=== PATIENT | female | born 1965 | race Caucasian/White ===

== ENCOUNTER 2024-10-14 14:10 | Emergency (ER) | payer MEDICAID ==
[~2024-10-14] VITALS: Ht 162.6 cm; Wt 54.6 kg
[2024-10-14 15:05] VITALS: TEMP 98
[2024-10-14 15:16] LABS: Hematocrit 40.2 % (36.0-46.0); Hemoglobin 13.8 g/dL (12.2-16.2); Mean Corpuscular Hemoglobin 30.7 pg (28.0-32.0); Mean Corpuscular Hgb Conc. 34.4 g/dL (32.0-36.0); Mean Corpuscular Volume 89.1 fL (80.0-100.0); Platelet Count (auto) 356 10^3/uL (140-450); Red Blood Cells 4.51 10^6/uL (4.0-5.20); Red Cell Distribution Width 13.1 % (11.8-14.3); White Blood Cell 14.8 10^3/uL (4.4-10.8)
[2024-10-14 15:21] LABS: Basophils % (manual) 0 (0.0-2.0); Blast Cells 0; Metamyelocytes % 0; Myelocytes % 0; Promyelocytes % 0; Reactive Lymphocytes 0
[2024-10-14 15:31] LABS: Alanine Aminotransferase 17 U/L (7-40); Alkaline Phosphatase 86 U/L (46-116); Anion Gap 13 (5-15); Aspartate Aminotransferase 24 U/L (13-40); BUN/Creatinine Ratio 12.5 (10.0-20.0); Blood Urea Nitrogen 13 mg/dL (9-23); Carbon Dioxide 24 mmol/L (20-31); Total Protein 7.5 g/dL (5.7-8.2)
[2024-10-14 15:32] LABS: Bilirubin, Total 0.3 mg/dL (0.2-1.0)
[2024-10-14 15:34] LABS: Band Neutrophils % (manual) 1; Eosinophils % (manual) 2 (0-7); Lymphocytes % (manual) 6 (10.0-50.0); Monocytes % (manual) 8 (0-12); Platelet Estimate Adequate
[2024-10-14 15:35] LABS: Salicylate < 3.0 mg/dL (-30)
[2024-10-14 15:36] LABS: Blood Alcohol < 3.0 mg/dL (<10); Chloride 97 mmol/L (98-107); Glucose 157 mg/dL (74-106); Potassium 2.8 mmol/L (3.5-5.1); Sodium 134 mmol/L (136-145)
--- NOTE | 2024-10-14 15:44 | ED.PDOC ---
Psychiatric HPI Comments 59-year-old Female [facility] with prior history diabetes, hypertension; surgery history and the chief complaint of overdose. EMS report that the nephew called 911, do from finding the patient and the patient's spouse unconscious in the living room. Nephew tear gave the patient 4 mg of Narcan before EMS arrival. When EMS arrived on scene the patient was having nausea and vomiting. Patient reports on picking up a white pill from the hallway, spouse crushed the pill and took it the pill with him. Denies chills, fever, /D, SOB, CP. No other associated symptoms, modifiers, recent injuries or sick contacts present at this time. 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, Medications, Allergies Information Source: Patient, Emergency Med Personnel Mode of Arrival: EMS Severity: Unable to Care for Self Severity of Pain: Moderate Severity of Mental Status: None Severity of Symptoms: Moderate Timing: Minutes Duration: Since onset, Minutes Prehospital treatment: None Presents with: Other (Overdose) Attempt: Ingestion (Unknown substance) Ingestion: Intentional, Drug(s) Ingested Circumstance: Found:Unconscious (By nephew) Stressors: None History of: None Quality: None Location: None Location of pain or injury: None Modifying Factors: Vomited after ingestion (And after given the Narcan) Associated signs and symptoms: Other (Overdose) Past Medical History PAST MEDICAL HISTORY: DM, HTN Surgical History: REVIEW SPECIALIST History: No Pertinent REVIEW SPECIALIST History Family History Family History: Reviewed,noncontributory to illness, Unknown Social History Smoker: Unknown Alcohol: Denies ETOH Use Drugs: Denies Drug Use Lives In: Home Constitutional: reports: others (Overdose); denies: chills, diaphoresis, fatigue, fever, malaise, sweats, weakness EENTM: denies: blurred vision, double vision, ear bleeding, ear discharge, ear drainage, ear pain, ear ringing, eye pain, eye redness, hearing loss, mouth pain, mouth swelling, nasal discharge, nose bleeding, nose congestion, nose pain, photophobia, tearing, throat pain, throat swelling, voice changes, others Respiratory: denies: cough, hemoptysis, orthopnea, SOB at rest, shortness of breath, SOB with excertion, stridor, wheezing, others Cardiovascular: denies: chest pain, dizzy spells, diaphoresis, Dyspnea on exertion, edema, irregular heart beat, left arm pain, lightheadedness, palpitations, PND, syncope, others Gastrointestinal: denies: abdomen distended, abdominal pain, blood streaked bowels, constipated, diarrhea, dysphagia, difficulty swallowing, hematemesis, melena, nausea, poor appetite, poor fluid intake, rectal bleeding, rectal pain, vomiting, others Genitourinary: denies: abnormal vagina bleeding, burning, dyspareunia, dysuria, flank pain, frequency, hematuria, incontinence, pain, , vagina discharge, urgency, others Neurological: denies: dizziness, fainting, headache, left sided numbness, left sided weakness, numbness, paresthesia, pre-existing deficit, right sided numbness, right sided weakness, seizure, speech problems, tingling, tremors, weakness, others Musculoskeletal: denies: back pain, gout, joint pain, joint swelling, muscle pain, muscle stiffness, neck pain, others Integumetry: denies: bruises, change in color, change in hair/nails, dryness, laceration, lesions, lumps, rash, wounds, others Allergic/Immunocompromised: denies: Difficulty Healing, Frequent Infections, Hives, Itching, others Hematologic/Lymphatic: denies: anemia, blood clots, easy bleeding, easy bruising, swollen glands, others Endocrine: denies: excessive hunger, excessive sweating, excessive thirst, excessive urination, flushing, intolerance to cold, intolerance to heat, unexplained weight gain, unexplained weight loss, others Psychiatric: denies: anxiety, bipolar disorder, depression, hopeless, panic disorder, schizophrenia, sleepless, suicidal, others All Other Systems: Reviewed and Negative Physical Exam General Appearance: No Apparent Distress, Normal HEENT: Normal ENT Inspection, Pharynx Normal, TMs Normal Neck: Full Range of Motion, Non-Tender, Normal, Normal Inspection Respiratory: Chest Non-Tender, Lungs Clear, No Accessory Muscle Use, No Respiratory Distress, Normal Breath Sounds Cardiovascular: No Edema, No JVD, No Murmur, No Gallop, Normal Peripheral Pulses, Regular Rate/Rhythm Breast Exam: Deferred Gastrointestinal: No Organomegaly, Non Tender, No Pulsatile Mass, Normal Bowel Sounds, Soft Genitalia: Deferred Pelvic: Deferred Rectal: Deferred Extremities: No calf tenderness, Normal capillary refill, Normal inspection, Normal range of motion, Non-tender, No pedal edema Musculoskeletal : Apperance: Normal Neurologic: Alert, plumber and tinner II-XII nml as Tested, No Motor Deficits, Normal Affect, Normal Mood, No Sensory Deficits Cerebellar Function: Normal Reflexes: Normal Skin: Dry, Normal Color, Warm Lymphatic: No Adenopathy Was a procedure done? Was a procedure done?: No X-Ray, Labs, Meds, VS Vital Signs Date Time Temp Pulse Resp B/P (MAP) Pulse Ox O2 Delivery O2 Flow Rate FiO2 10/14/24 16:00 64 16 149/71 (97) 93 10/14/24 16:00 61 10/14/24 15:45 61 18 97 Nasal Cannula* 2 28 10/14/24 15:05 98.0 60 16 157/79 (105) 94 98.0 10/14/24 14:40 98.0 59 15 135/63 (87) 97 98.0 Lab Test 10/14/24 16:10 10/14/24 15:02 Range/Units Urine Opiates Screen Neg NEGATIVE Urine Fentanyl Screen Pos NEGATIVE Urine Barbiturates Screen Neg NEGATIVE Urine Phencyclidine Screen Neg NEGATIVE Urine Amphetamines Screen Neg NEGATIVE Urine Benzodiazepines Screen Neg NEGATIVE Urine Cocaine Screen Neg NEGATIVE Urine Cannabinoids Screen Neg NEGATIVE White Blood Count 14.8 H 4.4-10.8 10^3/uL Red Blood Count 4.51 4.0-5.20 10^6/uL Hemoglobin 13.8 12.2-16.2 g/dL Hematocrit 40.2 36.0-46.0 % Mean Corpuscular Volume 89.1 80.0-100.0 fL Mean Corpuscular Hemoglobin 30.7 28.0-32.0 pg Mean Corpuscular Hemoglobin Concent 34.4 32.0-36.0 g/dL Red Cell Distribution Width 13.1 11.8-14.3 % Platelet Count 356 140-450 10^3/uL Mean Platelet Volume 6.9 6.9-10.8 fL Neutrophils (%) (Auto) 37.0-80.0 % Lymphocytes (%) (Auto) 10.0-50.0 % Monocytes (%) (Auto) 0.0-12.0 % Basophils (%) (Auto) 0.0-2.0 % Neutrophils # (Auto) 1.6-8.6 10 ^3/uL Lymphocytes # (Auto) 0.4-5.4 10 ^3/uL Monocytes # (Auto) 0-1.3 10 ^3/uL Differential Total Cells Counted 100.0 100 Neutrophils % (Manual) 83 H 37.0-80.0 Band Neutrophils % (Manual) 1 Lymphocytes % (Manual) 6 L 10.0-50.0 Monocytes % (Manual) 8 0-12 Eosinophils % (Manual) 2 0-7 Basophils % (Manual) 0 0.0-2.0 Metamyelocytes % (manual) 0 Myelocytes % (Manual) 0 Promyelocytes % (Manual) 0 Blast Cells % (Manual) 0 Reactive Lymphocytes 0 Platelet Estimate Adequate Sodium Level 134 L 136-145 mmol/L Potassium Level 2.8 L 3.5-5.1 mmol/L Chloride Level 97 L 98-107 mmol/L Carbon Dioxide Level 24 20-31 mmol/L Anion Gap 13 5-15 Blood Urea Nitrogen 13 9-23 mg/dL Creatinine 1.04 H 0.550-1.02 mg/dL Glomerular Filtration Rate Calc 62 >90 mL/min BUN/Creatinine Ratio 12.5 10.0-20.0 Serum Glucose 157 H 74-106 mg/dL Calcium Level 11.0 H 8.7-10.4 mg/dL Total Bilirubin 0.3 0.2-1.0 mg/dL Aspartate Amino Transferase (AST) 24 13-40 U/L Alanine Aminotransferase (ALT) 17 7-40 U/L Alkaline Phosphatase 86 46-116 U/L Total Protein 7.5 5.7-8.2 g/dL Albumin 5.0 H 3.2-4.8 g/dL Salicylates Level < 3.0 -30 mg/dL Acetaminophen Level 3.0 L 10.0-20.0 UG/ML Plasma/Serum Blood Alcohol < 3.0 <10 mg/dL 59-year-old female found to be cyanotic and unresponsive by nephew at home. Upon EMS arrival patients mental status was improving as nephew had given the patient 4 mg nasal sprain of Narcan.. At this time she has been stable while in the ER. sHe has been monitored closely by myself and placed on cardiac and pulse oximetry. SHe has not required additional Narcan. Blood work has been done which is largely unremarkable except for potassium of 2.8. I have given her potassium 40 mEq p.o. x1.. And repeat potassium has been done. Her UDS has returned positive for fentanyl which is the likely culprit. At this time patient is awake and speaking in full sentences with me. He has been able to walk to the bathroom. SHe has been monitored for greater than 4 hours. Family is to pick him up. Strongly advised patient not to take any medications that are not prescribed to her. I have given her prescription for Narcan. Time of 1ST Reevaluation: 15:10 Reevaluation 1ST: Unchanged Patient Education/Counseling: Diagnosis, Treatment, Prognosis Family Education/Counseling: No Family Present Departure 1 Departure Time of Disposition: 18:00 Impression: Primary Impression: Overdose of fentanyl Additional Impression: Hypokalemia Disposition: 01 HOME / SELF CARE / HOMELESS Condition: Fair e-Prescriptions Potassium Chloride (Klor-Con M20) 20 Meq Tab 20 MEQ PO BID for 3 Days, #6 TAB Prov: FRITZ BETANCOURT MD 10/14/24 Naloxone HCl (Narcan) 4 Mg/0.1 Ml Spr 4 MG NA one, #1 SPRAY Prov: FRITZ BETANCOURT MD 10/14/24 Critical Care Note Critical Care Time?: No Stability Stability form required: No Heart Score Heart Score: Heart Score Response (Comments) Value History N/A 0 EKG N/A 0 Age N/A 0 Risk Factors N/A 0 Troponin N/A 0 Total 0 I personally scribed for FRITZ BETANCOURT MD ([email or web address]) on 10/14/24 at 15:44. Electronically submitted by Mario Madera ([email or web address]). FRITZ BETANCOURT MD October 14, 2024 15:44
[2024-10-14 15:45] VITALS: PULSE 61; RESP 18; O2SAT 97
[2024-10-14 16:41] LABS: Benzodiazephine Screen, Urine Neg (NEGATIVE)
[2024-10-14 16:42] LABS: Amphetamine Screen, Urine Neg (NEGATIVE); Barbiturate Scree,Urine Neg (NEGATIVE); Cocaine Screen, Urine Neg (NEGATIVE); Opiate Scree,Urine Neg (NEGATIVE)
[2024-10-14 16:43] LABS: Cannabinoid Screen, Urine Neg (NEGATIVE); Phencyclidine Screen, Urine Neg (NEGATIVE)
[2024-10-14] MEDS ORDERED: POTA-220 PO (18:01)
[2024-10-14] MEDS ORDERED: NALO4SPR2 (18:01)
[2024-10-14] MEDS: POTASSIUM CHL 20 Meq TABLET PO ONE (18:09)
[2024-10-14 19:01] VITALS: BP 148/52; PULSE 68; RESP 16; O2SAT 95
[2024-10-14 19:24] LABS: Potassium 3.6 mmol/L (3.5-5.1)
[2024-10-14 19:25] LABS: Anion Gap 10 (5-15); Carbon Dioxide 29 mmol/L (20-31)
[2024-10-14 19:26] LABS: Calcium 10.4 mg/dL (8.7-10.4); Chloride 96 mmol/L (98-107); Sodium 135 mmol/L (136-145)
[2024-10-14 19:30] LABS: BUN/Creatinine Ratio 13.8 (10.0-20.0); Blood Urea Nitrogen 12 mg/dL (9-23)
[2024-10-14 19:31] LABS: Glucose 120 mg/dL (74-106)
== END 2024-10-14 19:45 | disposition home or self-care (01) ==
LOC: ER 14:10 → EDBD 14:10 → ER 19:45
DX: T40.411A Poisoning by fentanyl or fentanyl analogs, accidental (unintentional), initial encounter (principal); E87.6 Hypokalemia; E11.9 Type 2 diabetes mellitus without complications; I10 Essential (primary) hypertension; Z98.890 Other specified postprocedural states; Y92.098 Other place in other non-institutional residence as the place of occurrence of the external cause
CPT/HCPCS: 36415; 80048; 80053; 80307; 80320; 80329; 85007; 85027